=== PATIENT | male | born 1985 | race Caucasian/White ===

== ENCOUNTER 2018-12-08 05:40 | Outpatient (CLI) | payer BC ==
[~2018-12-08] VITALS: Ht 185.4 cm; Wt 114.3 kg
[~2018-12-08 05:40] MED LIST: ALPR.25T PO; AMOX-355 PO; HYDR1TAB PO
[2018-12-08] MEDS ORDERED: FLUO20TA28 PO (13:27)
[2018-12-08] MEDS ORDERED: DEXL60CA PO (13:27)
== END 2018-12-08 13:29 | disposition home or self-care (01) ==
LOC: PREOP 05:40
PROVIDERS: ATTEND Surgery
DX: Z01.818 Encounter for other preprocedural examination (principal)

== ENCOUNTER → 2018-12-25 | Outpatient (CLI) | payer BC ==
[~2018-12-25] MED LIST changes: +DEXL60CA PO; +FLUO20TA28 PO
--- NOTE | 2018-12-25 09:00 | Diagnostic Imaging Report ---
PROCEDURE: US Abdomen, limited. TECHNIQUE: Multiple realtime grayscale images were obtained over the abdomen in various projections. INDICATION: Right upper quadrant pain. FINDINGS: Liver is normal in size at 16.1 cm. No discrete liver mass is identified. Gallbladder is without stones or sludge. No wall thickening or biliary ductal dilatation is seen. Visualized pancreas unremarkable. Right kidney is without calculi or hydronephrosis. There is no ascites. IMPRESSION: Unremarkable right upper quadrant ultrasound. Dictated by: Dictated on workstation # [id number]
== END ==
LOC: RAD 07:50
PROVIDERS: ATTEND Surgery
DX: R10.11 Right upper quadrant pain (principal)
CPT/HCPCS: 76705

== ENCOUNTER → 2019-01-01 | Outpatient (CLI) | payer BC ==
[~2019-01-01] MED LIST changes: +CATHETER FLUSH 10 ML SYR IV PRN
--- NOTE | 2019-01-01 11:26 | Diagnostic Imaging Report ---
Hepatobiliary scan. Indication: Right upper quadrant pain. This study was performed following administration of 5.43 mCi of Choletec and one can of Ensure for ejection fraction calculation. There are no prior nuclear medicine hepatobiliary scans available for comparison. The abdominal ultrasound performed on 12/25/2018 was unremarkable for cholelithiasis or acute cholecystitis. There is uptake of the radiotracer by the gallbladder before 30 minutes. This would weigh against the diagnosis of acute cholecystitis. There is also extension of the radiotracer into the small bowel indicating the common bile duct is not obstructed. The ejection fraction is 55.6% (normal greater than 35). Impression: 1. There is no evidence for acute cholecystitis or for obstruction of the common bile duct. 2. The ejection fraction is 55.6% and within normal limits. Dictated by: Dictated on workstation # [id number]
== END ==
LOC: CARD 07:57
PROVIDERS: ATTEND Surgery
DX: R10.11 Right upper quadrant pain (principal)
CPT/HCPCS: 78227